=== PATIENT | female | born 1985 | race Two or more races ===

== ENCOUNTER → 2020-07-19 | Outpatient (CLI) | payer MEDICAID | END | disposition home or self-care (01) | LOC: LAB 09:43 | PROVIDERS: ATTEND Obstetrics & Gynecology | DX: O98.519 Other viral diseases complicating pregnancy, unspecified trimester (principal); U07.1 COVID-19; Z3A.00 Weeks of gestation of pregnancy not specified | CPT/HCPCS: C9803; U0003 ==

== ENCOUNTER 2020-07-22 04:58 | Inpatient (IN) | payer MEDICAID ==
[~2020-07-22] VITALS: Ht 162.6 cm; Wt 79.4 kg
[2020-07-22] MEDS ORDERED: OXYTOCIN 10 UNITS/ML 1ML ONE (07:00)
[2020-07-22] MEDS ORDERED: LACTATED RINGERS 1,000 ML IV SCH (07:15)
[2020-07-22] MEDS ORDERED: CARBOPROST TROMETHAMINE 250 MCG/ML AMPUL IM PRN (07:15)
[2020-07-22] MEDS ORDERED: METHYLERGONOVINE MALEATE 0.2 MG/ML IM PRN (07:15)
[2020-07-22] MEDS ORDERED: NALOXONE HCL 0.4 MG/ML 1ML VIAL IM PRN (07:15)
[2020-07-22] MEDS ORDERED: DEXT 5%/LR + PITOCIN 20UNITS/L 1,000 ML IV SCH (07:20)
[2020-07-22 07:37] LABS: INR 0.9; PROTHROMBIN TIME 9.7 sec (9.6-11.0)
[2020-07-22 07:40] LABS: CLARITY URINE CLOUDY (CLEAR); COLOR URINE YELLOW (YELLOW); KETONES URINE NEGATIVE (NEGATIVE); LEUKOCYTE ESTERASE URINE 3+ (NEGATIVE); NITRITE URINE NEGATIVE (NEGATIVE); OCCULT BLOOD URINE TRACE (NEGATIVE); PROTEIN URINE NEGATIVE (NEGATIVE); SPECIFIC GRAVITY URINE 1.012 (1.005-1.030)
[2020-07-22 07:40] LABS: BASOPHILS % 0.4 % (0.0-2.0); EOSINOPHILS % 1.3 % (0.0-5.0); HEMOGLOBIN. 10.9 g/dL (12.0-16.0); LYMPHOCYTES % 17.5 % (20.0-50.0); MEAN CORPUSCULAR HEMOGLOBIN 27.5 pg (28.0-32.0); MEAN CORPUSCULAR VOLUME 83.4 fL (81.0-99.0); MEAN PLATELET VOLUME 9.1 fl (7.4-10.4); MONOCYTES % 7.4 % (2.0-8.0); NEUTROPHILS % 73.4 % (40.0-76.0); PLATELET 233 x1000/uL (130-400); RED BLOOD CELL COUNT 3.95 mill/uL (4.2-5.4); RED CELL DISTRIBUTION WIDTH 17.9 % (11.6-14.6)
[2020-07-22 08:36] LABS: *AMPHETAMINES SCREEN URINE NEGATIVE (NEGATIVE); *BARBITURATES SCREEN URINE NEGATIVE (NEGATIVE); *BENZODIAZEPINES SCREEN URINE NEGATIVE (NEGATIVE); *COCAINE SCREEN URINE NEGATIVE (NEGATIVE)
[2020-07-22 08:37] LABS: CANNABINOID URINE SCREEN NEGATIVE (NEGATIVE); METHADONE URINE SCREEN NEGATIVE (NEGATIVE); OPIATES URINE SCREEN NEGATIVE (NEGATIVE); PHENCYCLIDINE URINE SCREEN NEGATIVE (NEGATIVE)
[2020-07-22] MEDS ORDERED: MORPHINE SULFATE/PF 1MG/ML 10ML AMP ONE (08:46)
[2020-07-22] MEDS ORDERED: DEXT 5%/LACTATED RINGERS 1,000 ML IV SCH (10:00)
[2020-07-22] MEDS ORDERED: BISACODYL 10MG SUPP PR PRN (10:00)
[2020-07-22] MEDS ORDERED: LANOLIN OINT 7GM TUBE TOP PRN (10:00)
[2020-07-22] MEDS ORDERED: IBUPROFEN 400MG TABLET PO PRN (10:00)
[2020-07-22] MEDS ORDERED: DIPHENHYDRAMINE 25MG CAPSULE PO PRN (10:00)
[2020-07-22] MEDS ORDERED: HEMORRHOIDAL SUPP PR PRN (10:00)
[2020-07-22] MEDS ORDERED: HYDROCODONE/ACETAMINOPHEN 5/325MG TABLET PO PRN (10:00)
[2020-07-22] MEDS ORDERED: ONDANSETRON HCL 4MG/2ML INJ IV PRN ×2 (10:00→13:30)
[2020-07-22] MEDS ORDERED: FENTANYL CITRATE/PF 50MCG/ML 2ML VIAL ONE (10:21)
[2020-07-22 11:00] LABS: HEPATITIS B SURFACE ANTIGEN NEGATIVE
[2020-07-22 12:50] VITALS: BP 95/53
[2020-07-22 13:20] VITALS: BP 105/53
[2020-07-22] MEDS ORDERED: DIPHENHYDRAMINE 50MG/ML VIAL IV PRN (13:30)
[2020-07-22] MEDS ORDERED: MEPERIDINE HCL/PF 25MG/ML CPJ IV PRN (13:30)
[2020-07-22] MEDS ORDERED: LABETALOL 5MG/ML SYR 20 MG/4 ML SYRINGE IV PRN (13:30)
[2020-07-22] MEDS ORDERED: HYDROMORPHONE HCL/PF 2MG/ML CPJ IV PRN (13:30)
[2020-07-22] MEDS ORDERED: BUTORPHANOL TARTRATE 2 MG/ML VIAL IM PRN (13:30)
[2020-07-22] MEDS: DEXT 5%/LR + PITOCIN 20UNITS/L 1,000 ML IV SCH ×2 (14:14→23:06)
[2020-07-22 16:10] VITALS: BP 92/53
[2020-07-22] MEDS: CEFAZOLIN 2,000 MG in DEXT 5% WATER 100 ML IV SCH (16:43)
[2020-07-22] MEDS: SIMETHICONE 80MG TABLET CHEW PO SCH ×2 (17:30→21:30)
[2020-07-22 20:00] VITALS: BP 98/55
[2020-07-22] MEDS: DOCUSATE SODIUM 100MG CAPSULE PO SCH (21:31)
[2020-07-23] VITALS: BP 94/55
[2020-07-23] MEDS: CEFAZOLIN 2,000 MG in DEXT 5% WATER 100 ML IV SCH ×2 (01:11→09:45)
[2020-07-23] MEDS: KETOROLAC 30MG/ML VIAL IV PRN ×2 (01:16→08:48)
[2020-07-23 04:00] VITALS: BP 100/54
[2020-07-23 08:00] VITALS: BP 94/56
[2020-07-23] MEDS: PRENATAL VIT/FE FUMARATE/FA TABLET PO SCH (08:47)
[2020-07-23] MEDS: SIMETHICONE 80MG TABLET CHEW PO SCH ×4 (08:47→21:14)
[2020-07-23] MEDS: FERROUS SULFATE 325MG TABLET PO SCH ×3 (09:45→16:18)
[2020-07-23 12:56] VITALS: BP 97/56
[2020-07-23 14:02] LABS: BASOPHILS % 0.1 % (0.0-2.0); EOSINOPHILS % 0.4 % (0.0-5.0); HEMATOCRIT. 25.9 % (36.0-48.0); HEMOGLOBIN. 8.5 g/dL (12.0-16.0); LYMPHOCYTES % 9.9 % (20.0-50.0); MEAN CORPUSCULAR HEMOGLOBIN 27.2 pg (28.0-32.0); MEAN PLATELET VOLUME 8.4 fl (7.4-10.4); MONOCYTES % 6.6 % (2.0-8.0); PLATELET 209 x1000/uL (130-400); RED BLOOD CELL COUNT 3.12 mill/uL (4.2-5.4); RED CELL DISTRIBUTION WIDTH 18.2 % (11.6-14.6)
[2020-07-23 16:00] VITALS: BP 96/58
[2020-07-23] MEDS: IBUPROFEN 800MG TABLET PO PRN ×2 (16:18→22:34)
[2020-07-23 19:30] VITALS: BP 93/50
[2020-07-23] MEDS: DOCUSATE SODIUM 100MG CAPSULE PO SCH (21:14)
[2020-07-24] MEDS: IBUPROFEN 800MG TABLET PO PRN (04:19)
[2020-07-24 04:27] VITALS: BP 105/56
[2020-07-24 07:25] VITALS: BP 97/53
[2020-07-24] MEDS: FERROUS SULFATE 325MG TABLET PO SCH (08:37)
[2020-07-24] MEDS: PRENATAL VIT/FE FUMARATE/FA TABLET PO SCH (08:37)
[2020-07-24] MEDS: SIMETHICONE 80MG TABLET CHEW PO SCH (08:37)
== END 2020-07-24 13:45 | disposition home or self-care (01) | DRG 541 ==
LOC: OBSVTOIN 04:58 → 8 EST LDRP 04:58 → INTOOBSV 04:58 → L&D 05:50 → 8 EST LDRP 07-23 03:00
PROVIDERS: ADMIT Obstetrics & Gynecology; ATTEND Obstetrics & Gynecology
PROC: 10E0XZZ Delivery of Products of Conception, External Approach (ICD-10-PCS; principal; 2020-07-22)
PROC: 0UB78ZZ Excision of Bilateral Fallopian Tubes, Via Natural or Artificial Opening Endoscopic (ICD-10-PCS; 2020-07-22)
DX: O34.219 Maternal care for unspecified type scar from previous cesarean delivery (principal); O98.52 Other viral diseases complicating childbirth; U07.1 COVID-19; Z37.0 Single live birth; Z3A.39 39 weeks gestation of pregnancy; Z30.2 Encounter for sterilization; Z79.899 Other long term (current) drug therapy
CPT/HCPCS: 36415; 80305; 81003; 85025; 86592; 86703; 86762; 86850; 86900; 86920; 87340; 88302; 88307; J0690; J1885; J2274; J2590; J3010; J7060; J7120; J7121; U0003-CS